=== PATIENT | male | born 1960 | race Caucasian/White ===

== ENCOUNTER 2018-05-26 11:27 | Observation (INO) | payer BC, OTHER ==
[2018-05-26] MEDS ORDERED: GLUCAGON 1 MG/VIAL IM PRN (12:17)
[2018-05-26] MEDS ORDERED: D50W 25 GM/50 ML SYRINGE IV PRN (12:17)
[2018-05-26] MEDS: NACHLORIDE 0.45% 1,000 ML IV SCH ×3 (12:35→22:45)
[2018-05-26 12:50] LABS: Absolute Lymphocytes (CBC) 1.4 K/uL (0.7-4.9); Absolute Monocytes 0.8 K/uL (0.1-1.3); Absolute Neutrophil 6.2 K/uL (1.8-8.0); Basophils % 0.6 % (0-1.3); Eosinophils % 0.4 % (0-4.4); Hematocrit 45.2 % (39.6-49.0); Lymphocytes % 16.3 % (15.3-44.8); MPV 9.4 fL (7.6-11.3); RBC Red Blood Cell Count 5.11 M/uL (4.33-5.43)
[2018-05-26 12:59] LABS: ALT/SGPT 20 U/L (12-78); AST/SGOT 17 U/L (15-37); Albumin 3.9 g/dL (3.4-5.0); Alkaline Phosphatase 84 U/L (45-117); BUN Blood Urea Nitrogen 45 mg/dL (7-18); Bicarbonate 23 mmol/L (21-32); Bilirubin Total 0.5 mg/dL (0.2-1.0); Glucose Level 177 mg/dL (74-106); Potassium 4.7 mmol/L (3.5-5.1); Protein, Total 8.1 g/dL (6.4-8.2); Sodium Level 137 mmol/L (136-145); Troponin I < 0.02 ng/mL (0.0-0.045)
--- NOTE | 2018-05-26 15:45 | RAD REPORT ---
EXAM DESCRIPTION: RAD - Chest Pa And Lat (2 Views) - 05/26/2018 3:20 pm CLINICAL HISTORY: dehydration Chest pain. COMPARISON: No comparisons FINDINGS: The lungs are clear. The heart is normal in size. No displaced fractures. IMPRESSION: No acute or concerning finding suspected.
[2018-05-26 16:53] LABS: Urine Appearance CLOUDY; Urine Blood TRACE (NEG); Urine Color YELLOW; Urine Glucose NEGATIVE (NEG); Urine Protein 2+ (NEG); Urine Specific Gravity 1.025 (1.005-1.030); Urine Urobilinogen 0.2 mg/dL (0.2-1.0)
[2018-05-26 17:18] LABS: Urine Bilirubin NEGATIVE (NEG); Urine Microscopic Reflex ORDER UMIC
[2018-05-26 17:20] LABS: Urine Bacteria 20-50 /HPF (NONE SEEN)
[2018-05-26 17:21] LABS: Urine Culture Reflex Order NOT NEEDED
[2018-05-26] MEDS: INSULIN -REGULAR HUMAN 50 UNIT/0.5 ML ML SQ SCH (18:00)
[2018-05-26] MEDS: ROSUVASTATIN 10 MG TAB PO SCH (22:46)
[2018-05-26] MEDS: PREGABALIN 150 MG CAP PO SCH (22:46)
[2018-05-27] MEDS: HYDROCODONE/APAP 5/325 MG TAB PO PRN ×3 (01:16→20:55)
[2018-05-27 04:56] LABS: Potassium 4.3 mmol/L (3.5-5.1)
[2018-05-27] MEDS: INSULIN -REGULAR HUMAN 50 UNIT/0.5 ML ML SQ SCH ×5 (05:16→21:00)
--- NOTE | 2018-05-27 06:59 | EKG ---
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
[2018-05-27] MEDS: NACHLORIDE 0.45% 1,000 ML IV SCH ×4 (07:45→22:43)
[2018-05-27] MEDS: CLOPIDOGREL 75 MG TABLET PO SCH (08:00)
[2018-05-27] MEDS: ASPIRIN EC 81 MG TAB PO SCH (08:00)
[2018-05-27] MEDS: PREGABALIN 150 MG CAP PO SCH ×2 (08:00→20:55)
[2018-05-27] MEDS ORDERED: ROSUVASTATIN CALCIUM PO SCH (09:00)
--- NOTE | 2018-05-27 20:33 | HP ---
Date of Admission: 05/26/2018 Chief Complaint: Dehydration, vomiting, and diarrhea. History Of Present Illness: A 57-year-old male was brought to the office because of diarrhea and vom iting and dehydration. The patient was found to have dizziness with near-syncope in the office at is point with a clinical diagnosis of dehydration. The patient was admitted for observation. The pa tient denied any history of vomiting of blood. No history of blood in the stools. The patient recen tly had upper respiratory infection. Past Medical History: Positive for type 2 diabetes requiring insulin, hypertension, coronary artery disease having had angioplasty in the past and hyperlipidemia. Past Surgical History: Negative other than the angioplasty. Personal History: Nonsmoker. Allergies: NO KNOWN ALLERGIES. Family History: Positive for diabetes. Review of Systems: No fever, chills, rigors. Physical Examination: General: Revealed a 57-year-old male. Vital Signs: Blood pressure of 112/70 in the office. HEENT: Otherwise negative. Neck: Supple. JVD negative. Chest: Clear. Heart: Regular. Abdomen: Soft. Extremities: No edema. Laboratory Data: Chem profile showed a BUN of 45, creatinine of 2.4, random blood sugar of 177. CBC normal. Assessment: 1.Dehydration. 2.Renal failure secondary to dehydration. 3.Type 2 diabetes. 4.Known coronary artery disease and status post angioplasty. 5.Hypertension. 6.Hyperlipidemia. Plan: The patient has been started on IV fluids. He is on clear liquids. He is tolerating at this point so it will be advanced and he will have repeat renal function tomorrow. The BUN has come down to 32 and creatinine 1.33. RRK/MODL Voice ID: [id number]
[2018-05-27] MEDS: ROSUVASTATIN 10 MG TAB PO SCH (20:55)
[2018-05-28] MEDS: HYDROCODONE/APAP 5/325 MG TAB PO PRN (00:54)
[2018-05-28] MEDS: NACHLORIDE 0.45% 1,000 ML IV SCH ×2 (05:00→10:37)
[2018-05-28] MEDS: INSULIN -REGULAR HUMAN 50 UNIT/0.5 ML ML SQ SCH ×2 (07:30→12:25)
[2018-05-28] MEDS: CLOPIDOGREL 75 MG TABLET PO SCH (08:02)
[2018-05-28] MEDS: ASPIRIN EC 81 MG TAB PO SCH (08:02)
[2018-05-28] MEDS: PREGABALIN 150 MG CAP PO SCH (08:02)
[2018-05-28 09:59] LABS: Potassium 4.4 mmol/L (3.5-5.1)
== END 2018-05-28 14:45 | disposition home or self-care (01) ==
LOC: 4TH 11:41
PROVIDERS: ADMIT Internal Medicine; ATTEND Internal Medicine
DX: E86.0 Dehydration (principal); N19 Unspecified kidney failure; E11.9 Type 2 diabetes mellitus without complications; I25.10 Atherosclerotic heart disease of native coronary artery without angina pectoris; I10 Essential (primary) hypertension; E78.5 Hyperlipidemia, unspecified
CPT/HCPCS: 36415; 71046; 80048; 80053; 81003; 81015; 82962; 84484; 85025; 87040; 87086; 87088; 93005; G0378

== ENCOUNTER 2018-07-20 14:18 | Inpatient (IN) | payer BC ==
--- OUTSIDE RECORDS SUMMARY | 2018-07-20 15:11 | XMS REPORT ---
:1960 [facility] [address] Patel [address] [place] [id number] Care Team Providers Name Role Phone Unavailable Unavailable Unavailable Problems This patient has no known problems. Allergies, Adverse Reactions, Alerts This patient has no known allergies or adverse reactions. Medications This patient has no known medications.
[2018-07-20] MEDS ORDERED: D50W 25 GM/50 ML SYRINGE IV PRN (15:17)
[2018-07-20] MEDS ORDERED: GLUCAGON 1 MG/VIAL IM PRN (15:17)
[2018-07-20] MEDS: NACHLORIDE 0.45% 1,000 ML IV SCH ×2 (15:43→22:29)
[2018-07-20] MEDS: MORPHINE 2 MG/ML SYR IV PRN ×2 (15:56→21:00)
[2018-07-20 16:02] LABS: Urine Appearance CLEAR; Urine Blood NEGATIVE (NEG); Urine Color DK YELLOW; Urine Glucose 2+ (NEG); Urine Protein 1+ (NEG); Urine Specific Gravity >=1.030 (1.005-1.030)
[2018-07-20 16:56] LABS: Urine Bacteria <20 /HPF (NONE SEEN); Urine Bilirubin NEGATIVE (NEG); Urine Culture Reflex Order NOT NEEDED; Urine Mucus 3+ /HPF (NONE SEEN); Urine RBC <5 /HPF (NONE SEEN)
[2018-07-20] MEDS: INSULIN -REGULAR HUMAN 50 UNIT/0.5 ML ML SQ SCH (18:00)
[2018-07-20] MEDS ORDERED: INFLUENZA VACCINE (for 3y+) 0.5 ML DOSE IMVAC ONE (20:00)
[2018-07-20] MEDS: ROSUVASTATIN 10 MG TAB PO SCH (22:26)
[2018-07-21] MEDS: MORPHINE 2 MG/ML SYR IV PRN ×5 (00:50→20:44)
[2018-07-21] MEDS: NACHLORIDE 0.45% 1,000 ML IV SCH ×2 (05:24→18:15)
[2018-07-21 05:26] LABS: Absolute Monocytes 0.8 K/uL (0.1-1.3); Absolute Neutrophil 1.8 K/uL (1.8-8.0); Basophils % 0.9 % (0-1.3); Eosinophils % 4.7 % (0-4.4); Hematocrit 41.3 % (39.6-49.0); Lymphocytes % 26.4 % (15.3-44.8); MPV 9.2 fL (7.6-11.3); Monocytes % 20.7 % (3.3-12.3); RBC Red Blood Cell Count 4.72 M/uL (4.33-5.43)
[2018-07-21 05:40] LABS: Albumin 3.4 g/dL (3.4-5.0); Bilirubin Total 0.5 mg/dL (0.2-1.0); Potassium 4.8 mmol/L (3.5-5.1); Protein, Total 7.4 g/dL (6.4-8.2)
[2018-07-21] MEDS: INSULIN -REGULAR HUMAN 50 UNIT/0.5 ML ML SQ SCH ×5 (06:00→22:10)
--- NOTE | 2018-07-21 08:25 | RAD REPORT ---
EXAM DESCRIPTION: US - Abdomen Exam Complete - 07/21/2018 8:13 am CLINICAL HISTORY: Abdominal pain COMPARISON: CT July 20, 2018 FINDINGS: A mildly increased hepatic echotexture A gallstone is not seen. The gallbladder wall is not thickened. The biliary tree is normal caliber. The pancreas was not well visualized secondary overlying bowel. The right kidney measures 10 centimeters with a normal echotexture. The left kidney measures 10 centimeters with a normal echotexture. A small left renal cyst The spleen measures 10 centimeters. The abdominal aorta and inferior vena cava appear unremarkable IMPRESSION: Mild fatty infiltration liver
[2018-07-21] MEDS ORDERED: ALPRAZOLAM 1 MG TABLET PO ONE (08:57)
[2018-07-21] MEDS: PREGABALIN 150 MG CAP PO SCH ×2 (09:00→20:45)
[2018-07-21] MEDS: LISINOPRIL 10 MG TAB PO SCH (10:10)
--- NOTE | 2018-07-21 11:05 | RAD REPORT ---
EXAM DESCRIPTION: MRI - Cholangiogram - 07/21/2018 9:37 am CLINICAL HISTORY: abd pain and elevated liver enzymes COMPARISON: Abdomen Exam Complete dated 07/21/2018; Abdomen Pelvis W Contrast dated 07/20/2018 FINDINGS: Three-dimensional MRCP was performed using maximum intensity projection reconstruction on the same work station. No intrahepatic biliary tree dilatation is seen. The common bile duct is normal caliber without evide nce of retained stone, stricture or mass. The pancreatic duct is not pathologically dilated. The gallbladder is unremarkable. Limited T2 sequences through the abdomen demonstrates no bulky adenopathy, significant free fluid or abscess. IMPRESSION: Negative MR cholangiogram.
--- NOTE | 2018-07-21 16:54 | HP ---
Date of Admission: 07/20/2018 Chief Complaint: Upper abdominal pain. History Of Present Illness: A 57-year-old male was brought to the office because of upper abdominal pain of 2-3 days' duration. There was no history of vomiting of blood. No history of diarrhea. The patient was found to have tenderness in the upper abdomen with a possibility of pancreatitis or acute abdomen. The patient was admitted for observation. Past Medical History: Positive for type 2 diabetes, hyperlipidemia, hypertension, and history of cor onary artery disease. Family History: Noncontributory. Personal History: No known allergies. Home Medicines: Please refer to the chart. Review of Systems: The patient denied any fever, chills, rigors. Physical Examination: General: Revealed 57-year-old male in moderate pain. Afebrile. HEENT: Negative. Neck: Supple. JVD negative. Chest: Clear. Heart: Regular abdomen. Tender epigastrium and upper abdomen diffusely. No rebound tenderness. Tavon wel sounds present. Extremities: No edema. Laboratory Data: CBC, white count normal. Chem profile, elevated alkaline phosphatase and liver enz ymes. Bilirubin is normal. Assessment: 1.Upper abdominal pain. 2.Rule out biliary obstruction. 3.Type 2 diabetes. 4.Hypertension. 5.Hyperlipidemia. Plan: N.p.o. IV fluids. The patient's outpatient CAT scan did not show any acute abdomen. The [facility] is scheduled for ultrasound of the abdomen. The patient may need MRCP; however, because the dye was given yesterday, MRCP was not done yesterday. KILEY/LIZ Voice ID: [id number]
[2018-07-21] MEDS ORDERED: HYDROCODONE/APAP 7.5/325 MG TAB PO PRN (17:24)
[2018-07-21] MEDS: ROSUVASTATIN 10 MG TAB PO SCH (20:45)
[2018-07-22] MEDS: INSULIN -REGULAR HUMAN 50 UNIT/0.5 ML ML SQ SCH ×4 (07:30→21:00)
--- NOTE | 2018-07-22 08:26 | RAD REPORT ---
EXAM DESCRIPTION: NM - Hepatobiliary System W/ Ph - 07/22/2018 7:26 am CLINICAL HISTORY: Abdominal Pain COMPARISON: No comparisons TECHNIQUE: The patient was administered 6.2 mCi Tc99m Choletec. Imaging of the right upper quadrant was performed initially for up to 60 minutes. Gallbladder ejection fraction determination was then performed utilizing synthetic 1.5 mgm CCK over a slow 30 minute infusion. FINDINGS: Normal hepatic uptake and excretion with appropriate clearance of background blood pool ac tivity. Normal visualization of biliary and small bowel activity. Gallbladder visualizes within normal time limits. The calculated ejection fraction is 13% (normal gre ater than 35%). Subjective pain reported by the patient: Pre-procedure - none During or subsequent to synthetic CCK infusion - none IMPRESSION: Patient cystic duct and patent sphincter of Oddi. No delay in visualization of the gallb ladder, biliary tree, or duodenum. Ejection fraction is 13%, abnormally low (normal greater than 35%). Subjective patient pain assessment as detailed above.
[2018-07-22] MEDS: MORPHINE 2 MG/ML SYR IV PRN ×2 (08:36→13:47)
[2018-07-22] MEDS: PREGABALIN 150 MG CAP PO SCH ×2 (08:37→22:21)
[2018-07-22] MEDS: LISINOPRIL 10 MG TAB PO SCH (08:37)
--- NOTE | 2018-07-22 12:58 | PN ---
Subjective: The patient is doing better. However, his workup so far is negative for any biliary obs truction. The patient has elevated alkaline phosphatase, is not clear as to the nature of his illnes s. The patient is scheduled for HIDA scan to see whether he has biliary dyskinesia. KILEY/LIZ Voice ID: [id number] Report ID: [id number]
[2018-07-22] MEDS ORDERED: NA CHLORIDE 0.9% 1,000 ML ONE (18:53)
[2018-07-22] MEDS ORDERED: SUCCINYLCHOLINE 20 MG/ML (10 ML) IV ONE (19:29)
[2018-07-22] MEDS ORDERED: MIDAZOLAM HCL 2 MG/2 ML INJ ONE (19:41)
[2018-07-22] MEDS ORDERED: FENTANYL CITR 100 MCG/2 ML ONE (19:41)
[2018-07-22] MEDS ORDERED: PROPOFOL 200 MG/20 ML VIAL IV ONE (19:41)
[2018-07-22] MEDS ORDERED: ROCURONIUM 50 MG/5 ML VIAL IV ONE (19:42)
--- NOTE | 2018-07-22 19:47 | P.CNS ---
Reason for Consult: Abdominal pain Primary Care Provider: Jia Chief Complaint: Upper abdominal pain History of Present Illness: This paste presents emergency room with severe upper abdominal pain. He states is radiating to his back. He had it for tore 3 days could no longer stand it and came to the emergency room for evaluation. On evaluation his story sounded consistent with chronic cholecystitis. He was admitted to the hospital. An MRCP was negative however HIDA scan today shows ejection fraction of only 13%. Allergies No Known Allergies Allergy (Verified 05/26/18 11:56) Home medications list reviewed: Yes Home Medications: Aspirin [Adry Chewable] 81 mg PO DAILY 07/20/18 Clopidogrel Bisulfate [Plavix] 75 mg PO DAILY 07/20/18 Cyclobenzaprine HCl 10 mg PO DAILY 07/20/18 Dulaglutide [Trulicity] 0.75 mg SQ DAILY 07/20/18 Lisinopril [Prinivil*] 10 mg PO DAILY 07/20/18 Metformin HCl [Metformin ER Osmotic] 1,000 mg PO BID 07/20/18 Pregabalin [Lyrica] 150 mg PO BID 07/20/18 Rosuvastatin Calcium 40 mg PO BEDTIME 07/20/18 - Past Medical/Surgical History Diabetic: Yes -: heart stent -: IDDM -: Hypertension -: hyperlipidemia -: heart stent - Family History Father Medical History: Cancer - Social History Alcohol use: No CD- Drugs: No Caffeine use: No Place of Residence: Home Review of Systems General: Unremarkable Respiratory: Unremarkable Gastrointestinal: As per HPI Genitourinary: Unremarkable Physical Examination Temp Pulse Resp BP Pulse Ox 97.4 F 73 18 132/77 98 07/22/18 16:00 07/22/18 16:00 07/22/18 16:00 07/22/18 16:00 07/22/18 16:00 General: Mild distress HEENT: Sclerae nonicteric Respiratory: Normal air movement Cardiovascular: Normal S1 S2 Gastrointestinal: Tenderness (Mi in the right upper quadrant) Rectal: Deferred Imagings Data: His MRCP was negative. However his ejection fraction displays a HIDA scan displays an ejection fraction of only 13%. Conclusions/Impression: This patient, who presented emergency room with severe upper abdominal pain radiating to his back, had essentially normal CT scan ultrasound and MRCP apart from demonstrating a fatty liver. However his HIDA scan does not demonstrate an ejection fraction of 13%. I have discussed with the patient and his about concerns for dysfunctional gallbladder. The fact that this may explain his pain in discomfort because when he thinks about it he says he has been having episodes like this over the last few years and her increasing both in and number and intensity. I will taken the operating room for a lot worse up with cholecystectomy with cholangiogram. The risks of this procedure were discussed. The possibility of bleeding, infection, injury to bile ducts blood vessels and intestines was outlined. The possible need for further surgeries and procedures including an open operation were described. He understands and wants to proceed. We also mentioned that HIDA scan is not an exact measurement of have a gallbladder worsening still have some persistent similar abdominal pain afterwards. He finds it is acceptable and wants to get this done.
[2018-07-22] MEDS: CEFOXITIN/SWI 1gm 1 GM/10 ML SYR ONE ×2 (20:00→20:05)
[2018-07-22] MEDS ORDERED: Phenylephrine HCl 10 MG/ML 1 ML VIAL ONE (20:21)
[2018-07-22] MEDS ORDERED: ONDANSETRON 4 MG/2 ML VIAL IV PRN (20:54)
[2018-07-22] MEDS ORDERED: HYDROCODONE/APAP 7.5/325 MG TAB PO PRN (20:54)
--- NOTE | 2018-07-22 20:56 | P.OP ---
Preoperative diagnosis: Cholecystitis, biliary colic Postoperative diagnosis: The same Primary procedure: Laparoscopic cholecystectomy Secondary procedure: Cholangiogram Anesthesia: General Estimated blood loss: Less than 10 cc Specimen: 1 gallbladder and contents Operative Technique: The patient was brought to the operating room placed supine on the table. After the induction of adequate general endotracheal anesthesia, the area of the abdomen is prepped with a DuraPrep solution, and draped in the usual aseptic manner. A subumbilical incision was made. This brought down through the skin and subcutaneous tissue. The Visiport was used to enter the peritoneal cavity and create a pneumoperitoneum to approximately 12 mm of mercury. Under direct vision a 5 mm trocar was placed in the upper midline, and 2 other 5 mm trocars on the right lateral side. The patient's was then placed in reverse Trendelenburg and rolled towards the jig mill operator's side. We could see and edematous and distended gallbladder. A grasper was placed on the fundus. Another 1 down by Pablo's pouch. There was noted be chronic inflammatory changes around the area of the Pablo's pouch. Applying lateral traction we were able to dissect and expose the cystic duct and artery. Having obtained the critical view, the artery was dealt with 1st. It was clipped and divided in the usual manner. A clip was then placed between the gallbladder and the cystic duct. An opening was made into the cystic duct. We attempted then to pass the cholangiocath into the cystic duct. Having done so we were able to obtain intraoperative cholangiogram. It showed good filling flow contrast into the duodenum. No filling defects were noted. Clips were now placed on the distal portion of the cystic duct. The cystic duct was then divided. The gallbladder was now dissected free from the liver bed, placed into an Endo-Catch , and brought out through the umbilical trocar site. The gallbladder fossa was inspected to ensure adequate hemostasis. It was irrigated with a saline solution and the irrigant aspirated from the peritoneal cavity. 0.25% Marcaine was aerosolized into the right upper quadrant and the gallbladder fossa. The umbilical trocar site was now approximated with an Endo Close and an absorbable sutures. We were also able block the anterior abdominal wall with 0.25% Marcaine. The pneumoperitoneum was then collapsed, the suture tied, and jair applied to the skin. A further 0.25% Marcaine was injected around are incision sites. At the end of the procedure the patient was in a stable condition when sent to the recovery room. Needle sponge instrument count were correct. 1 specimen was sent for histopathology. Complications: None Transferred to: Recovery Room Condition: Good
[2018-07-22] MEDS ORDERED: NEOSTIGMINE 1 MG/ML -10 ML VIAL ONE (20:58)
[2018-07-22] MEDS ORDERED: GLYCOPYRROLATE 0.2 MG/ML SYR ONE (20:58)
[2018-07-22] MEDS: HYDROMORPHONE HCL 1 MG/ML INJ ONE ×4 (21:03→21:28)
[2018-07-22] MEDS ORDERED: PROMETHAZINE 25 MG/ML VIAL ONE (21:14)
[2018-07-22] MEDS ORDERED: Ringers Lactate 1,000 ML IV ONE (21:19)
[2018-07-22] MEDS: ROSUVASTATIN 10 MG TAB PO SCH (22:21)
[2018-07-22] MEDS: MORPHINE 4 MG/ML SYR IV PRN (22:30)
[2018-07-23] MEDS: MORPHINE 4 MG/ML SYR IV PRN ×2 (00:36→04:57)
[2018-07-23] MEDS: INSULIN -REGULAR HUMAN 50 UNIT/0.5 ML ML SQ SCH ×2 (07:30→12:01)
--- NOTE | 2018-07-23 08:03 | RAD REPORT ---
EXAM DESCRIPTION: RAD - Fluoroscopy <1 Hour - 07/22/2018 9:38 pm FINDINGS: Seven portable C-arm views were obtained during a fluoroscopic assisted intraoperative cho langiogram. No suspicious or unexpected findings. Fluoro time was 0.2 minutes.
[2018-07-23] MEDS: LISINOPRIL 10 MG TAB PO SCH (09:20)
[2018-07-23] MEDS: PREGABALIN 150 MG CAP PO SCH (09:21)
[2018-07-23 09:34] LABS: Albumin 3.4 g/dL (3.4-5.0); Bilirubin Total 0.8 mg/dL (0.2-1.0); Protein, Total 7.1 g/dL (6.4-8.2)
--- NOTE | 2018-07-23 12:57 | P.PN ---
Date of Service: 07/23/18 S: Patient looks well today, says he feels a whole lot better. Has been up ambulating. O: Vital signs are stable, incisions are clean A: Surgically stable P: Patient may be discharged when Dr. Pond agrees. I have given him a prescription for his pain medicine. He will see me next week in my office.
== END 2018-07-23 14:32 | disposition home or self-care (01) | DRG 419 ==
LOC: 2ND 14:25 → OBSVTOIN 07-22 13:25
PROVIDERS: ADMIT Internal Medicine; ATTEND Internal Medicine
PROC: BF00YZZ Plain Radiography of Bile Ducts using Other Contrast (ICD-10-PCS; 2018-07-22)
PROC: 0FT44ZZ Resection of Gallbladder, Percutaneous Endoscopic Approach (ICD-10-PCS; principal; 2018-07-22 15:15)
DX: K81.9 Cholecystitis, unspecified (principal); E11.9 Type 2 diabetes mellitus without complications; I10 Essential (primary) hypertension; E78.5 Hyperlipidemia, unspecified; Z95.5 Presence of coronary angioplasty implant and graft; Z79.82 Long term (current) use of aspirin; I25.10 Atherosclerotic heart disease of native coronary artery without angina pectoris
CPT/HCPCS: 36415; 74181; 76000; 76700; 78227; 80053; 81001; 82962; 85025; 85652; 86038; 86255; 88304; A9537; G0378; J0330; J1170; J2250; J2270; J2370; J2550; J2704; J2710; J2805; J3010; J7030; Q9967

== ENCOUNTER 2019-01-28 15:31 | Inpatient (IN) | payer BC ==
[2019-01-28] MEDS ORDERED: GLUCAGON 1 MG/VIAL IM PRN ×2 (16:00→16:02)
[2019-01-28] MEDS ORDERED: D50W 25 GM/50 ML SYRINGE IV PRN ×2 (16:00→16:02)
[2019-01-28 16:04] VITALS: BMI 27.0
[2019-01-28] MEDS: NACHLORIDE 0.45% 1,000 ML IV SCH ×2 (16:12→21:03)
[2019-01-28] MEDS: ONDANSETRON 4 MG/2 ML VIAL IV PRN ×2 (16:17→21:01)
[2019-01-28] MEDS ORDERED: INSULIN -REGULAR HUMAN 50 UNIT/0.5 ML ML SQ SCH ×2 (16:30→18:00)
[2019-01-28 16:46] LABS: Absolute Lymphocytes (CBC) 0.4 K/uL (0.7-4.9); Basophils % 0.5 % (0-1.3); Hematocrit 35.3 % (39.6-49.0); Lymphocytes % 4.6 % (15.3-44.8); MPV 9.5 fL (7.6-11.3); RBC Red Blood Cell Count 3.87 M/uL (4.33-5.43)
[2019-01-28 17:06] LABS: Albumin 3.3 g/dL (3.4-5.0); Bilirubin Total 0.6 mg/dL (0.2-1.0); Potassium 4.4 mmol/L (3.5-5.1); Protein, Total 6.8 g/dL (6.4-8.2)
[2019-01-28] MEDS: INSULIN -REGULAR HUMAN 50 UNIT/0.5 ML ML SQ SCH (18:00)
[2019-01-28] MEDS ORDERED: ACETAMINOPHEN 325 MG TABLET PO PRN (19:33)
[2019-01-28 19:55] LABS: Blood Morphology Comment NOT SEEN (NOT SEEN); Platelet Estimate DECR
[2019-01-28] MEDS: CEFOXITIN SODIUM 1 GM/VIAL IVPB SCH (20:00)
[2019-01-28] MEDS ORDERED: CEFOXITIN/SWI 1gm 2 GM/20 ML SYR ONE (20:24)
[2019-01-28 21:16] LABS: Urine Appearance CLEAR; Urine Bilirubin NEGATIVE (NEG); Urine Blood 3+ (NEG); Urine Color YELLOW; Urine Glucose 3+ (NEG); Urine Protein 2+ (NEG); Urine Specific Gravity >=1.030 (1.005-1.030); Urine Urobilinogen 0.2 mg/dL (0.2-1.0)
[2019-01-28 21:17] LABS: Urine Microscopic Reflex ORDER UMIC
[2019-01-28 21:31] LABS: Urine Amorphous Sediment TRACE /HPF (NONE SEEN); Urine Bacteria <20 /HPF (NONE SEEN); Urine Culture Reflex Order NOT NEEDED; Urine RBC <5 /HPF (NONE SEEN)
[2019-01-28 22:50] LABS: Absolute Lymphocytes (CBC) 0.6 K/uL (0.7-4.9); Basophils % 0.2 % (0-1.3); Hematocrit 33.2 % (39.6-49.0); Lymphocytes % 7.7 % (15.3-44.8); MPV 9.4 fL (7.6-11.3); RBC Red Blood Cell Count 3.68 M/uL (4.33-5.43)
[2019-01-28 23:17] LABS: Bilirubin Direct 0.1 mg/dL (0-0.2); Bilirubin Total 0.5 mg/dL (0.2-1.0); Potassium 4.1 mmol/L (3.5-5.1); Protein, Total 6.7 g/dL (6.4-8.2)
[2019-01-28] MEDS: MORPHINE 4 MG/ML SYR IV PRN (23:27)
[2019-01-28] MEDS: NA CHLORIDE 0.9% 1,000 ML IV SCH (23:27)
[2019-01-29] MEDS: INSULIN -REGULAR HUMAN 50 UNIT/0.5 ML ML SQ SCH ×4 (00:17→18:00)
[2019-01-29] MEDS: CEFOXITIN SODIUM 1 GM/VIAL IVPB SCH (03:22)
[2019-01-29] MEDS: NA CHLORIDE 0.9% 1,000 ML IV SCH ×5 (03:45→16:51)
--- NOTE | 2019-01-29 08:08 | RAD REPORT ---
EXAM DESCRIPTION: Bernice Single View01/28/2019 11:22 pm CLINICAL HISTORY: Sepsis COMPARISON: May 2018 FINDINGS: The lungs appear clear of acute infiltrate. The heart is normal size IMPRESSION: No acute abnormalities displayed
[2019-01-29] MEDS: CIPROFLOXACIN 400mg IV 400 MG/200 ML BAG IV SCH ×2 (08:50→20:36)
[2019-01-29] MEDS: METRONIDAZOLE 500mg IVPB 500 MG/100 ML BAG IV SCH ×2 (08:50→16:52)
[2019-01-29] MEDS: CLOPIDOGREL 75 MG TABLET PO SCH (08:50)
[2019-01-29] MEDS: ONDANSETRON 4 MG/2 ML VIAL IV PRN ×3 (08:51→23:27)
[2019-01-29] MEDS: PANTOPRAZOLE 40MG TABLET PO SCH (08:51)
[2019-01-29] MEDS: MORPHINE 4 MG/ML SYR IV PRN ×3 (08:51→23:26)
[2019-01-29] MEDS ORDERED: CEFOXITIN/SWI 1gm 1 GM/10 ML SYR IV SCH (11:00)
[2019-01-29 14:45] LABS: C.diff Antigen/Toxin Ag neg : Tox neg (NEG : NEG)
[2019-01-29] MEDS: ROSUVASTATIN 10 MG TAB PO SCH (20:37)
--- NOTE | 2019-01-29 20:55 | HP ---
Date of Admission: 01/28/2019 Chief Complaint: Three days of diarrhea, vomiting, and abdominal pain. History Of Present Illness: A 58-year-old male who was having diarrhea, vomiting, abdominal pain for 3 days. He was brought to the office when he was found to have evidence of dehydration, hypotension . The patient is admitted for observation. No history of vomiting of blood. No rectal bleeding. T he patient had ERCP, gallbladder surgery. He is scheduled for a colonoscopy next week with Dr. Luciano. Past Medical History: Positive for insulin-requiring diabetes, coronary angioplasty, hypertension, a nd hyperlipidemia. Past Surgical History: Positive for coronary stenting, gallbladder surgery. Family History: Diabetes present. Personal History: Nonsmoker. Allergies: NONE. Home Medicines: Please refer to the chart. Review of Systems: No history of chest pain or shortness of breath. Physical Examination: General: Revealed a 58-year-old male clinically dehydrated with wrinkled skin of the face as well as arms. Vital Signs: Blood pressure was 102/70 in the office. HEENT: No icterus. Neck: Supple. JVD negative. Chest: Clear. Heart: Regular. Abdomen: Soft. Extremities: No edema. Neurological: Negative. Laboratory Data: White count normal with bands. Chem profile, elevated creatinine 1.7. Assessment: 1.Gastroenteritis, abdominal pain. 2.Known coronary artery disease. 3.Hypertension. 4.Type 2 diabetes. 5.Hyperlipidemia. 6.Status post gallbladder surgery and endoscopic retrograde cholangiopancreatography. Plan: The patient is on IV fluids, Cipro, Flagyl, pending the stool cultures. GI consult from Dr. Jyothi suárez requested. KILEY/LIZ Voice ID: [id number]
[2019-01-30] MEDS: METRONIDAZOLE 500mg IVPB 500 MG/100 ML BAG IV SCH ×3 (01:41→17:07)
[2019-01-30] MEDS: INSULIN -REGULAR HUMAN 50 UNIT/0.5 ML ML SQ SCH ×5 (05:40→20:21)
[2019-01-30] MEDS: MORPHINE 4 MG/ML SYR IV PRN ×3 (05:41→20:18)
[2019-01-30] MEDS: ONDANSETRON 4 MG/2 ML VIAL IV PRN ×2 (05:42→12:09)
[2019-01-30] MEDS: PANTOPRAZOLE 40MG TABLET PO SCH (05:43)
[2019-01-30] MEDS: CIPROFLOXACIN 400mg IV 400 MG/200 ML BAG IV SCH ×2 (08:00→20:18)
--- NOTE | 2019-01-30 08:02 | PN ---
Subjective: Patient is doing much better. He still has diarrhea but no vomiting. He still has naus ea. The patient will be given advanced diet and see whether he would tolerate, meanwhile his antibio tics will be continued, pending the stool culture reports. KILEY/LIZ Voice ID: [id number] Report ID: [id number]
[2019-01-30] MEDS: CLOPIDOGREL 75 MG TABLET PO SCH (09:22)
[2019-01-30] MEDS: NA CHLORIDE 0.9% 1,000 ML IV SCH ×2 (09:24→19:40)
[2019-01-30 10:55] VITALS: O2SAT 98
[2019-01-30] MEDS: ROSUVASTATIN 10 MG TAB PO SCH (20:18)
[2019-01-31] MEDS: METRONIDAZOLE 500mg IVPB 500 MG/100 ML BAG IV SCH ×2 (00:15→08:51)
[2019-01-31] MEDS: ONDANSETRON 4 MG/2 ML VIAL IV PRN (02:44)
[2019-01-31] MEDS: MORPHINE 4 MG/ML SYR IV PRN ×2 (02:44→10:44)
[2019-01-31] MEDS: NA CHLORIDE 0.9% 1,000 ML IV SCH (02:48)
[2019-01-31] MEDS: PANTOPRAZOLE 40MG TABLET PO SCH (05:25)
[2019-01-31] MEDS: CLOPIDOGREL 75 MG TABLET PO SCH (08:51)
[2019-01-31] MEDS: CIPROFLOXACIN 400mg IV 400 MG/200 ML BAG IV SCH (08:52)
[2019-01-31] MEDS: INSULIN -REGULAR HUMAN 50 UNIT/0.5 ML ML SQ SCH ×2 (08:53→12:30)
[2019-01-31 12:42] VITALS: BP 141/74; TEMP 97.2
--- NOTE | 2019-02-01 12:50 | RAD REPORT ---
EXAM DESCRIPTION: CT - Abdomen Pelvis Wo Contrast - 01/29/2019 12:37 am CLINICAL HISTORY: Abdominal pain. COMPARISON: 07/20/2018 TECHNIQUE: CT scan of the abdomen and pelvis was performed without IV contrast. This exam was perfor med according to our departmental dose-optimization program, which includes automated exposure contro l, adjustment of the mA and/or kV according to patient size and/or use of iterative reconstruction te chnique. FINDINGS: The lung bases are clear. No pleural or pericardial effusions. There is no hiatal hernia. There has been a prior cholecystectomy. The liver, spleen, pancreas, adrenal glands, and kidneys are unremarkable. No urinary stones are seen. The pelvic organs are also unremarkable. No small bowel obstruction. The appendix is normal. There is no evidence of diverticulitis. No intrap eritoneal free fluid or free air is identified. The aorta is normal caliber. No acute bony findings are seen. There is no pathologic body wall hernia . IMPRESSION: No acute abdominal or pelvic pathology. Electronically signed by: Beck Sharma MD 01/29/2019 12:16 AM CDT Due to temporary technical issues with the PACS/Fluency reporting system, reports are being signed by the in house radiologist as a courtesy to ensure prompt reporting. The interpreting radiologist is f ully responsible for the content of the report.
== END 2019-01-31 13:33 | disposition home or self-care (01) | DRG 392 ==
LOC: 2ND 15:33 → OBSVTOIN 01-30 15:18
PROVIDERS: ADMIT Internal Medicine; ATTEND Internal Medicine
DX: K52.9 Noninfective gastroenteritis and colitis, unspecified (principal); E86.0 Dehydration; I95.9 Hypotension, unspecified; E11.9 Type 2 diabetes mellitus without complications; I10 Essential (primary) hypertension; E78.5 Hyperlipidemia, unspecified; I25.10 Atherosclerotic heart disease of native coronary artery without angina pectoris; Z95.5 Presence of coronary angioplasty implant and graft
CPT/HCPCS: 36415; 71045; 74176; 80053; 81003; 81015; 82150; 82248; 82962; 83605; 83690; 85025; 87040; 87045; 87046; 87077; 87186; 87205; 87324; 87449; G0378; G0379; J0694; J0744; J2405; J7030